=== PATIENT | male | born 1990 | race Caucasian/White ===

== ENCOUNTER 2021-11-21 15:16 | Emergency (ER) | payer MEDICAID ==
[2021-11-21 17:32] LABS: CORONAVIRUS COVID-19 NAA POSITIVE (NEGATIVE)
== END 2021-11-21 17:21 | disposition home or self-care (01) ==
LOC: JD.ED 15:16
DX: B34.9 Viral infection, unspecified (principal); Z72.0 Tobacco use
CPT/HCPCS: 0240U; 99283; 99284

== ENCOUNTER 2022-05-04 00:55 | Emergency (ER) | payer MEDICAID ==
[2022-05-04] MEDS ORDERED: Ondansetron 4 MG/2 ML SDV IVPUSH ONE (02:33)
[2022-05-04] MEDS ORDERED: Sodium Chloride 0.9% 1,000 ML IV ONE (02:33)
[2022-05-04] MEDS ORDERED: Haloperidol Lactate 5 MG/ML SDV IM ONE (02:33)
[2022-05-04] MEDS ORDERED: Benztropine 1 MG Tab PO ONE (02:33)
== END 2022-05-04 04:06 | disposition home or self-care (01) ==
LOC: JD.ED 00:55
DX: G43.909 Migraine, unspecified, not intractable, without status migrainosus (principal); F17.210 Nicotine dependence, cigarettes, uncomplicated
CPT/HCPCS: 96372; 99283; A9270; J1630